=== PATIENT | female | born 1975 | race Caucasian/White ===

== ENCOUNTER 2022-12-02 08:26 | Emergency (ER) | payer OTHER, SELFPAY ==
--- NOTE | ~2022-12-02 | XR_ITS ---
EXAMINATION: XR HIP, RIGHT WITH PELVIS CLINICAL INFORMATION: Pain COMPARISON: None TECHNIQUE: AP view of the pelvis is performed along with AP and frog-lateral projections of the right hip. FINDINGS: There is no fracture or dislocation. Bony mineralization appears normal. The SI joints and pubis show no diastases. Bowel gas is unremarkable. The right hip shows no fracture or dislocation or arthropathy. No joint narrowing or erosive change. Soft tissue planes are unremarkable. XR/XR hip RT w [id number] IMPRESSION: Normal pelvis and right hip.
--- NOTE | ~2022-12-02 | XR_ITS ---
EXAMINATION: XR CHEST CLINICAL INFORMATION: Pain COMPARISON: None TECHNIQUE: 2 views of the chest were obtained. FINDINGS: The lungs are clear. There is no pneumothorax, pneumomediastinum, infiltrate, or effusion. The costophrenic sulci are clear. The heart is normal in size. The hilar and mediastinal contours are normal. There is dextrocurvature midthoracic spine and levocurvature thoracolumbar spine. No free air beneath the diaphragms. XR/XR chest 2V IMPRESSION: Lungs clear.
[2022-12-02 08:32] VITALS: BP 167/67; PULSE 88; O2SAT 100
[2022-12-02 08:36] VITALS: BP 142/68; PULSE 89; RESP 20; TEMP 36.3; O2SAT 100; BMI 33.6
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
[2022-12-02] MEDS: Acetaminophen 325 MG TABLET 975 MG PO (13:03)
[2022-12-02 13:07] VITALS: BP 129/71; PULSE 80; RESP 18; O2SAT 100
== END 2022-12-02 13:17 | disposition home or self-care (01) ==
PROVIDERS: Emergency Provider Emergency Medicine; PCP Internal Medicine
DX: Z04.1 Encounter for examination and observation following transport accident (principal); R07.9 Chest pain, unspecified; M25.551 Pain in right hip
CPT/HCPCS: 71046; 73502; 99283